=== PATIENT | male | born 1945 | race Caucasian/White ===

== ENCOUNTER 2016-07-20 20:18 | Inpatient (IN) | payer OTHER ==
[~2016-07-20] VITALS: Ht 190.5 cm; Wt 115.9 kg
[~2016-07-20 20:18] MED LIST: KEFLEX500 MG PO; PERCOCET 5/31 TABLET PO
[2016-07-20 20:41] LABS: BASOPHIL COUNT 0.1 K/uL (0-0.1); EOSINOPHIL (%) 1.6 % (0-5); EOSINOPHIL COUNT 0.1 K/uL (0-0.3); HEMATOCRIT 39.8 % (38.0-50.0); IMMATURE GRANULOCYTE (%) 0.4 % (0.0-0.7); INSTRUMENT ABS NEUTROPHIL CT 7.3 K/uL; LYMPHOCYTE COUNT 0.5 K/uL (1.0-2.8); MCH 29.5 PG (29.0-34.0); MCHC 31.9 G/DL (30.0-36.0); MCV 92.3 FL (86-99); MEAN PLAT.VOLUME 8.7 uM^3 (9.0-12.4); MONOCYTE (%) 4.5 % (3-12); MONOCYTE COUNT 0.4 K/uL (0-0.8); NEUTROPHIL (%) 86.7 % (45-76); NEUTROPHIL COUNT 7.3 K/uL (1.8-6.4); PLATELET COUNT 275 K/uL (156-360); RBC DIS.WIDTH-SD 44.2 % (39-53); RED BLOOD COUNT 4.31 M/uL (4.00-5.50); WHITE BLOOD COUNT 8.4 K/uL (4.1-10.2)
[2016-07-20 20:48] LABS: AMYLASE 49 IU/L (1-118)
[2016-07-20 20:54] LABS: INTER. NORMALIZED RATIO 1.1; PROTHROMBIN TIME 11.5 (9.2-11.2); SERUM ETHYL ALCOHOL < 10 mg/dL
[2016-07-20 20:57] LABS: LIPASE 47 U/L (1.0-51.0)
[2016-07-20 21:02] LABS: ADD MIUA? YES; BILIRUBIN NEGATIVE; BLOOD NEGATIVE; COLOR YELLOW ((YELLOW)); GLUCOSE (STRIP) 50; KETONES 5; LEUKOCYTES NEGATIVE; NITRITE NEGATIVE; PROTEIN (STRIP) 100; SPECIFIC GRAVITY 1.016 (1.000-1.030); UROBILINOGEN 0.2 MG/DL (0.2-1.0)
[2016-07-20 21:03] LABS: TROP-I INTERPRETATION NEGATIVE; TROPONIN-I 0.03 ng/mL (0.0-0.30)
[2016-07-20 21:13] LABS: AMPHETAMINE NEGATIVE (500 ng/mL); BARBITURATES NEGATIVE (200 ng/mL); BENZODIAZEPINES NEGATIVE (150 ng/mL); COCAINE NEGATIVE (150 ng/mL); INTERNAL CONTROLS VALID? YES; METHADONE NEGATIVE (200 ng/mL); METHAMPHETAMINE NEGATIVE (500 ng/mL); OPIATES (MORPHINE) NEGATIVE (100 ng/mL); OXYCODONE NEGATIVE (100 ng/mL); PHENCYCLIDINE NEGATIVE (25 ng/mL); PROPOXYPHENE NEGATIVE (300 ng/mL); THC CANNABINOIDS NEGATIVE (50 ng/mL); TRICYCLIC ANTIDEPRESSANTS NEGATIVE (300 ng/mL)
[2016-07-20 21:39] LABS: GLUCOSE 306 mg/dL (70-99); SODIUM 134 MEQ/L (136-147)
[2016-07-20 21:40] LABS: CHLORIDE 101 MEQ/L (99-109); GFR ESTIMATE (CALCULATED) > 59 mL/min/; POTASSIUM 4.5 MEQ/L (3.7-5.4); UREA NITROGEN (BUN) 23 mg/dL (9-23)
[2016-07-20 21:50] LABS: BACTERIA 2+ /HPF; EPITHELIAL CELLS 1+ /HPF; MUCUS NONE SEEN /LPF; RED BLOOD CELLS 0-5 /HPF (0-5); UCUL ADDED? NO; WHITE BLOOD CELLS 0-5 /HPF (0-5)
[2016-07-20 21:58] VITALS: BP 129/73
[2016-07-20 22:00] VITALS: BP 129/73
[2016-07-20 22:30] VITALS: BP 112/72
[2016-07-20 22:50] LABS: CHLORIDE 103 mEq/L (99-109)
[2016-07-20 22:51] LABS: MAGNESIUM 1.7 mg/dL (1.3-2.7); SODIUM 137 mEq/L (136-147)
[2016-07-20 22:52] LABS: POTASSIUM 3.3 mEq/L (3.7-5.4)
[2016-07-20 22:53] LABS: GLUCOSE 176 mg/dL (70-99)
[2016-07-20 22:54] LABS: ANION GAP 16 MEQ/L (2-14)
[2016-07-20 22:55] LABS: INTER. NORMALIZED RATIO 1.1; PROTHROMBIN TIME 11.6 (9.2-11.2); PTT 26.3 (25-32)
[2016-07-20 22:56] LABS: GFR ESTIMATE (CALCULATED) > 59 mL/min/
[2016-07-20 22:57] LABS: UREA NITROGEN (BUN) 24 mg/dL (9-23)
[2016-07-20 23:00] VITALS: BP 100/49
[2016-07-20 23:07] LABS: TROP-I INTERPRETATION POSITIVE
[2016-07-20 23:27] LABS: METH RESISTANT S AUREUS PCR NEGATIVE (NEGATIVE)
[2016-07-20 23:36] LABS: PROBE CHECK PASS; SPECIMEN PROCESSING CONTROL PASS
[2016-07-21] VITALS: BP 106/51
[2016-07-21 05:23] LABS: POINT-OF-CARE METER ID UU14162636
[2016-07-21 05:35] LABS: BASOPHIL COUNT 0.1 K/uL (0-0.1); EOSINOPHIL (%) 0.7 % (0-5); EOSINOPHIL COUNT 0.1 K/uL (0-0.3); HEMATOCRIT 36.5 % (38.0-50.0); IMMATURE GRANULOCYTE (%) 0.6 % (0.0-0.7); IMMATURE GRANULOCYTE COUNT 0.1 K/uL; INSTRUMENT ABS NEUTROPHIL CT 9.3 K/uL; LYMPHOCYTE COUNT 0.6 K/uL (1.0-2.8); MCH 29.2 PG (29.0-34.0); MCHC 32.1 G/DL (30.0-36.0); MEAN PLAT.VOLUME 8.9 uM^3 (9.0-12.4); MONOCYTE (%) 9.1 % (3-12); NEUTROPHIL (%) 83.6 % (45-76); NEUTROPHIL COUNT 9.3 K/uL (1.8-6.4); PLATELET COUNT 274 K/uL (156-360); RED BLOOD COUNT 4.01 M/uL (4.00-5.50)
[2016-07-21 05:36] LABS: WHITE BLOOD COUNT 11.2 K/uL (4.1-10.2)
[2016-07-21 05:37] LABS: CHLORIDE 107 mEq/L (99-109); MAGNESIUM 1.9 mg/dL (1.3-2.7); SODIUM 135 mEq/L (136-147)
[2016-07-21 05:39] LABS: GLUCOSE 131 mg/dL (70-99)
[2016-07-21 05:40] LABS: ANION GAP 8 MEQ/L (2-14)
[2016-07-21 05:42] LABS: POTASSIUM 4.4 mEq/L (3.7-5.4)
[2016-07-21 05:43] LABS: GFR ESTIMATE (CALCULATED) > 59 mL/min/; UREA NITROGEN (BUN) 23 mg/dL (9-23)
[2016-07-21 05:49] LABS: TROP-I INTERPRETATION POSITIVE; TROPONIN-I 7.68 ng/mL (0.0-0.30)
[2016-07-21] MEDS ORDERED: CALCIPOTRIENE60 G1 TP (06:47)
[2016-07-21] MEDS ORDERED: METFORMIN HCL1000 MG PO (07:09)
[2016-07-21] MEDS ORDERED: EXTRA STRENGTH500 M1 PO (07:09)
[2016-07-21] MEDS ORDERED: CARVEDILOL25 MG PO (07:10)
[2016-07-21] MEDS ORDERED: VALSARTAN80 MG PO (07:10)
[2016-07-21] MEDS ORDERED: DAILY VITAMIN1 EAC5 PO (07:12)
[2016-07-21] MEDS ORDERED: FUROSEMIDE20 MG PO (07:16)
[2016-07-21] MEDS ORDERED: SPIRONOLACTONE25 MG PO (07:17)
[2016-07-21] MEDS ORDERED: SERTRALINE HCL50 MG PO (07:17)
[2016-07-21] MEDS ORDERED: FLONASE16 G1 BOTH NARES (07:18)
[2016-07-21] MEDS ORDERED: ATORVASTATIN CA80 MG PO (07:19)
[2016-07-21] MEDS ORDERED: HUMIRA40 MG/0.8 SC (07:20)
[2016-07-21] MEDS ORDERED: BENADRYL25 MG PO (07:21)
[2016-07-21] MEDS ORDERED: LO-DOSE ASPIRIN81 M2 PO (07:21)
[2016-07-21] MEDS ORDERED: EUCERIN CALM I200 ML TP (07:22)
[2016-07-21] MEDS ORDERED: CLARITIN10 M3 PO (07:23)
[2016-07-21] MEDS ORDERED: KETOCONAZOLE120 ML TP (07:23)
[2016-07-21 08:00] VITALS: BP 118/57
[2016-07-21 09:00] VITALS: BP 118/57
[2016-07-21] MEDS ORDERED: VALSARTAN160 MG PO (10:21)
[2016-07-21] MEDS ORDERED: SERTRALINE HCL100 MG PO (10:22)
[2016-07-21 12:00] VITALS: BP 114/59
[2016-07-21 12:42] LABS: POINT-OF-CARE METER ID UU14162636
[2016-07-21 13:23] LABS: TROP-I INTERPRETATION POSITIVE; TROPONIN-I 6.84 ng/mL (0.0-0.30)
[2016-07-21 18:55] LABS: TROP-I INTERPRETATION POSITIVE; TROPONIN-I 4.88 ng/mL (0.0-0.30)
[2016-07-21 21:35] LABS: POINT-OF-CARE METER ID UU13113731
[2016-07-22] VITALS: BP 112/56
[2016-07-22 05:53] LABS: POINT-OF-CARE METER ID UU13113731
[2016-07-22 06:12] LABS: BASOPHIL COUNT 0.1 K/uL (0-0.1); EOSINOPHIL (%) 3.2 % (0-5); EOSINOPHIL COUNT 0.3 K/uL (0-0.3); HEMATOCRIT 34.2 % (38.0-50.0); IMMATURE GRANULOCYTE (%) 0.5 % (0.0-0.7); INSTRUMENT ABS NEUTROPHIL CT 5.8 K/uL; MCH 29.8 PG (29.0-34.0); MCHC 32.5 G/DL (30.0-36.0); MCV 91.9 FL (86-99); MEAN PLAT.VOLUME 9.1 uM^3 (9.0-12.4); MONOCYTE (%) 16.8 % (3-12); MONOCYTE COUNT 1.5 K/uL (0-0.8); NEUTROPHIL (%) 67.7 % (45-76); NEUTROPHIL COUNT 5.8 K/uL (1.8-6.4); PLATELET COUNT 232 K/uL (156-360); RBC DIS.WIDTH-CV 13.3 % (11.8-14.6); RBC DIS.WIDTH-SD 45.1 % (39-53); RED BLOOD COUNT 3.72 M/uL (4.00-5.50); WHITE BLOOD COUNT 8.6 K/uL (4.1-10.2)
[2016-07-22 06:35] LABS: ANION GAP 7 MEQ/L (2-14); CHLORIDE 107 MEQ/L (99-109); GFR ESTIMATE (CALCULATED) > 59 mL/min/; GLUCOSE 144 mg/dL (70-99); POTASSIUM 4.4 MEQ/L (3.7-5.4); SAMPLE HEMOLYSIS CHECK 0; SAMPLE ICTERIC CHECK 0; SAMPLE LIPEMIA CHECK 0; SODIUM 135 MEQ/L (136-147); UREA NITROGEN (BUN) 17 mg/dL (9-23)
[2016-07-22 06:40] LABS: TROP-I INTERPRETATION POSITIVE; TROPONIN-I 3.21 ng/mL (0.0-0.30)
[2016-07-22 08:46] LABS: MAGNESIUM 1.7 mg/dl (1.3-2.7)
[2016-07-22 09:00] VITALS: BP 130/65
[2016-07-22 17:00] VITALS: BP 130/67
[2016-07-22 23:00] VITALS: BP 130/67
[2016-07-22 23:25] LABS: POINT-OF-CARE METER ID UU13113803
[2016-07-23 03:45] VITALS: BP 137/72
[2016-07-23 05:49] LABS: POINT-OF-CARE METER ID UU13113803
[2016-07-23 08:00] VITALS: BP 139/72
[2016-07-23 12:00] VITALS: BP 127/60
[2016-07-23] MEDS ORDERED: CORDARONE200 MG PO (12:10)
[2016-07-23] MEDS ORDERED: ATORVASTATIN CA40 MG PO (12:10)
[2016-07-23 12:39] LABS: POINT-OF-CARE METER ID UU13113803
== END 2016-07-23 13:35 | disposition home health service (06) | DRG 225 ==
LOC: EME 20:18 → CATH 20:32 → 4WEST 21:14 → 2SOUTH 21:14 → 4WEST 21:56
PROVIDERS: Emergency Medicine; Hospitalist; Internal Medicine; Internal Medicine Cardiovascular Disease; Surgery Surgical Critical Care
DX: I47.2 Ventricular tachycardia (principal); I25.10 Atherosclerotic heart disease of native coronary artery without angina pectoris; Z00.6 Encounter for examination for normal comparison and control in clinical research program; I25.5 Ischemic cardiomyopathy; I50.22 Chronic systolic (congestive) heart failure; I11.0 Hypertensive heart disease with heart failure; I95.89 Other hypotension; E78.5 Hyperlipidemia, unspecified; I25.2 Old myocardial infarction; E11.9 Type 2 diabetes mellitus without complications; E83.42 Hypomagnesemia; I73.9 Peripheral vascular disease, unspecified; E86.9 Volume depletion, unspecified; R19.7 Diarrhea, unspecified; Z95.1 Presence of aortocoronary bypass graft; Z87.891 Personal history of nicotine dependence; Z79.84 Long term (current) use of oral hypoglycemic drugs
CPT/HCPCS: 71010; 80048; 80048 91; 81003; 82150; 82565; 82948; 83605; 83690; 83735; 83880; 84100; 84484; 84520; 85025; 85025 91; 85027; 85610; 85730; 86850; 86900; 86901; 87641; 93005; 93306; 94799; 99281; 99285; C1760; C1769; C1887; C1894; C1899; G0480; J0153; J0282; J0690; J1200; J1644; J1815; J2250; J2405; J3010; J3246; J3475; J3480; J7030; J7050; S0020

== ENCOUNTER 2016-09-22 01:33 | Inpatient (IN) | payer OTHER ==
[2016-09-22] VITALS (15 sets, daily range): BP systolic 79–139; BP diastolic 55–86
[~2016-09-22] VITALS: Ht 190.5 cm; Wt 111.0 kg
[~2016-09-22 01:33] MED LIST changes: +ATORVASTATIN CA40 MG PO; +ATORVASTATIN CA80 MG PO; +BENADRYL25 MG PO; +CALCIPOTRIENE60 G1 TP; +CARVEDILOL25 MG PO; +CLARITIN10 M3 PO; +CORDARONE200 MG PO; +DAILY VITAMIN1 EAC5 PO; +EUCERIN CALM I200 ML TP; +EXTRA STRENGTH500 M1 PO; +FLONASE16 G1 BOTH NARES; +FUROSEMIDE20 MG PO; +HUMIRA40 MG/0.8 SC; +KETOCONAZOLE120 ML TP; +LO-DOSE ASPIRIN81 M2 PO; +METFORMIN HCL1000 MG PO; +SERTRALINE HCL100 MG PO; +SERTRALINE HCL50 MG PO; +SPIRONOLACTONE25 MG PO; +VALSARTAN160 MG PO; +VALSARTAN80 MG PO
[2016-09-22 02:12] LABS: HEMATOCRIT 40.9 % (38.0-50.0); MCH 29.3 PG (29.0-34.0); MCHC 31.5 G/DL (30.0-36.0); MEAN PLAT.VOLUME 9.5 uM^3 (9.0-12.4); PLATELET COUNT 236 K/uL (156-360); RBC DIS.WIDTH-SD 44.3 % (39-53); WHITE BLOOD COUNT 11.7 K/uL (4.1-10.2)
[2016-09-22 02:23] LABS: CHLORIDE 104 mEq/L (99-109); SODIUM 136 mEq/L (136-147)
[2016-09-22 02:24] LABS: GLUCOSE 184 mg/dL (70-99); INTER. NORMALIZED RATIO 1.1; PROTHROMBIN TIME 11.4 (9.2-11.2); PTT 26.6 (25-32)
[2016-09-22 02:26] LABS: ANION GAP 12 MEQ/L (2-14)
[2016-09-22 02:28] LABS: GFR ESTIMATE (CALCULATED) > 59 mL/min/
[2016-09-22 02:29] LABS: UREA NITROGEN (BUN) 22 mg/dL (9-23)
[2016-09-22 02:35] LABS: TROP-I INTERPRETATION NEGATIVE; TROPONIN-I 0.03 ng/mL (0.0-0.30)
[2016-09-22 10:34] LABS: HDL CHOLESTEROL 34 MG/DL (Desirable>=40); LDL CHOLESTEROL 69 mg/dL (Desirable<100); NON-HDL CHOLESTEROL 86 mg/dL (Desirable<160); TOTAL CHOLESTEROL 120 mg/dL (Desirable<200); TRIGLYCERIDES 85 MG/DL (Normal: <150)
[2016-09-22 10:52] LABS: TROP-I INTERPRETATION NEGATIVE; TROPONIN-I 0.08 ng/mL (0.0-0.30)
[2016-09-22 11:03] LABS: Estimated Average Glucose 137 mg/dL (70-123); HEMOGLOBIN A1c (GLYCOHEMOGLOB) 6.4 % HGB (Below 5.7)
[2016-09-22] MEDS ORDERED: SERTRALINE HCL50 MG PO (12:13)
[2016-09-22] MEDS ORDERED: ATORVASTATIN CA80 MG PO ×2 (12:17→12:26)
[2016-09-22 13:16] LABS: METH RESISTANT S AUREUS PCR NEGATIVE (NEGATIVE)
[2016-09-22 13:19] LABS: PROBE CHECK PASS; SPECIMEN PROCESSING CONTROL PASS
[2016-09-22 14:51] LABS: ANION GAP 11 MEQ/L (2-14); CHLORIDE 103 MEQ/L (99-109); GFR ESTIMATE (CALCULATED) > 59 mL/min/; GLUCOSE 201 mg/dL (70-99); MAGNESIUM 2.3 mg/dl (1.3-2.7); SAMPLE HEMOLYSIS CHECK 0; SAMPLE ICTERIC CHECK 0; SAMPLE LIPEMIA CHECK 0; SODIUM 136 MEQ/L (136-147); TROP-I INTERPRETATION NEGATIVE; TROPONIN-I 0.09 ng/mL (0.0-0.30); UREA NITROGEN (BUN) 17 mg/dL (9-23)
== END 2016-09-22 20:44 | disposition short-term general hospital (02) | DRG 309 ==
LOC: EME → EDBD 01:33 → EME 01:33 → EDOF 02:58 → 5WEST 04:07 → 4WEST 11:31 → 5WEST 11:31 → 4WEST 11:44
PROVIDERS: Emergency Medicine; Hospitalist; Internal Medicine Nephrology; Physician Assistant Medical
DX: I47.2 Ventricular tachycardia (principal); E11.9 Type 2 diabetes mellitus without complications; E78.5 Hyperlipidemia, unspecified; E83.39 Other disorders of phosphorus metabolism; F10.21 Alcohol dependence, in remission; I08.1 Rheumatic disorders of both mitral and tricuspid valves; I27.2 Other secondary pulmonary hypertension; I11.0 Hypertensive heart disease with heart failure; I25.10 Atherosclerotic heart disease of native coronary artery without angina pectoris; I25.5 Ischemic cardiomyopathy; I50.42 Chronic combined systolic (congestive) and diastolic (congestive) heart failure; I65.23 Occlusion and stenosis of bilateral carotid arteries; R32 Unspecified urinary incontinence; E66.9 Obesity, unspecified; F32.9 Major depressive disorder, single episode, unspecified; L40.9 Psoriasis, unspecified; I95.9 Hypotension, unspecified; I25.2 Old myocardial infarction; Z68.31 Body mass index [BMI] 31.0-31.9, adult; Z79.82 Long term (current) use of aspirin; Z86.73 Personal history of transient ischemic attack (TIA), and cerebral infarction without residual deficits; Z87.891 Personal history of nicotine dependence; Z95.810 Presence of automatic (implantable) cardiac defibrillator; Z95.1 Presence of aortocoronary bypass graft
CPT/HCPCS: 70450; 71010; 80048; 80048 91; 80061; 83036; 83735; 84100; 84484; 85027; 85610; 85730; 87641; 93005; 93880; 95819; 99281; 99284; J0282; J1650; J2270; J3475; J7030; J7050